=== PATIENT | male | born 2000 | race Hispanic/Latino ===

== ENCOUNTER 2025-06-22 09:19 | Emergency (ER) | payer SELFPAY ==
[2025-06-22 10:24] LABS: Bacteria/HPF None Seen HPF (None Seen); Glucose, Urine (Dipstick) Normal (Negative); Leukocyte 75 Leu/uL (Negative); Protein, Urine (Dipstick) Negative (Neg-Trace); RBC/HPF 0-3 HPF (0-3); Specific Gravity, Urine 1.022 (1.002-1.036)
[2025-06-22] MEDS ORDERED: cefTRIAXone (ROCEPHIN) 500 MG VIAL ONE (10:33)
[2025-06-22] MEDS ORDERED: Azithromycin 250 MG TAB ONE (10:33)
[2025-06-22 22:37] LABS: Chlam.trachomatis by PCR,Urine DETECTED (NotDetected); GC N.gonorrhoeae PCR,UrineVOID Not Detected (NotDetected)
== END 2025-06-22 11:18 | disposition home or self-care (01) ==
LOC: ERS 09:19
DX: A64 Unspecified sexually transmitted disease (principal)
CPT/HCPCS: 81001; 87491; 87591; 96372; 99283; J0696